=== PATIENT | male | born 1960 | race Caucasian/White ===

== ENCOUNTER 2020-05-09 14:03 | Emergency (ER) | payer OTHER ==
[~2020-05-09] VITALS: Ht 177.8 cm; Wt 155.0 kg
[~2020-05-09 14:03] MED LIST: AMLO10TA4 PO; ASPI-630 PO; ATOR20TA58 PO; OMEP40CA45 PO; TRIA1TAB5 PO
[2020-05-09] MEDS ORDERED: DEXAMETHASONE SOD PHOS 10 MG/ML VIAL. IV ONE (14:15)
[2020-05-09] MEDS ORDERED: cefTRIAXone SODIUM 1 GM VIAL ONE ×2 (14:36→14:40)
[2020-05-09] MEDS ORDERED: IV NORMAL SALINE 50ML 50 ML ONE ×2 (14:36→14:40)
[2020-05-09] MEDS ORDERED: MORPHINE SULFATE 4 MG/ML DISP.SYRIN. IV ONE ×2 (14:45→17:30)
[2020-05-09 14:47] LABS: BASO % 1 % (0-3); EOS % 0 % (0-3); HEMATOCRIT 52.1 % (39.0-53.0); HEMOGLOBIN 17.7 g/dL (13.0-17.5); LYMPH % 12 % (24-48); MEAN CORPUSCULAR HEMOGLOBIN 31 pg (25-35); MEAN CORPUSCULAR HGB CONC 34 g/dL (31-37); MEAN CORPUSCULAR VOLUME 91 fL (79-100); MONO # 0.8 x10^3/uL (0.0-1.1); MONO % 9 % (0-9); NEUT % 79 % (31-73); PLATELET COUNT 273 x10^3/uL (140-400); RED BLOOD COUNT 5.71 x10^6/uL (4.30-5.70); RED CELL DISTRIBUTION WIDTH 12.9 % (11.5-14.5); WHITE BLOOD COUNT 8.8 x10^3/uL (4.0-11.0)
[2020-05-09 14:50] LABS: CALCIUM 8.6 mg/dL (8.5-10.1); GFR 76.7; POTASSIUM 4.4 mmol/L (3.5-5.1)
--- NOTE | 2020-05-09 14:51 | RAD ---
Portable chest compared to similar exam dated May 042015 for shortness of breath. FINDINGS: Lung voids are reduced. There are patchy peripheral airspace opacities concerning for pneum onic infiltrates, though these are likely augmented some extent on the basis of habitus and incomplet e inspiration. No pleural effusions. No pneumothorax. Normal heart size. IMPRESSION: 1. Patchy airspace opacities which may reflect pneumonic infiltrates. Electronically signed by: Sukhdeep Brooks MD (05/09/2020 2:49 PM) [id number]
[2020-05-09 15:03] LABS: ALBUMIN/GLOBULIN RATIO 0.8 (1.0-1.7); C REACTIVE PROTEIN 145.5 mg/L (0-3.3); TOTAL BILIRUBIN 0.6 mg/dL (0.2-1.0); TOTAL PROTEIN 6.8 g/dL (6.4-8.2)
[2020-05-09] MEDS ORDERED: MORPHINE SULFATE 10 MG/ML SYRINGE. IV ONE (15:15)
[2020-05-09] MEDS ORDERED: IOHEXOL 350 MG/ML 100 ML VIAL. IV ONE (15:30)
[2020-05-09 15:53] LABS: INFLUENZA A PATIENT NEGATIVE (NEGATIVE); INFLUENZA B PATIENT NEGATIVE (NEGATIVE)
--- NOTE | 2020-05-09 16:15 | EKG ---
[address] [address] Test Date: 2020-05-09 Test Time: 14:22:16 Pat Name: ANNEL MORIN Department: Room: Gender: M [employer]ist[employer]: : [id number] Requested By: VANDANA HAM Order Number: [id number] Reading MD: Measurements Intervals [place] Rate: 97 P: MT: QRS: 0 QRSD: 96 T: 105 QT: 330 QTc: 423 Interpretive Statements SINUS RHYTHM LEFTWARD AXIS QRS(T) CONTOUR ABNORMALITY CONSIDER ANTEROSEPTAL MYOCARDIAL DAMAGE T ABNORMALITY IN HIGH LATERAL LEADS ABNORMAL ECG RI6.02 No previous ECG available for comparison
--- NOTE | 2020-05-09 16:52 | RAD ---
EXAMINATION: CTA CHEST CLINICAL HISTORY: Chest pain, shortness of breath, elevated d-dimer Technique: Spiral CT acquisition of the chest from the thoracic inlet to the upper abdomen following IV contrast with coronal and sagittal reformatted images also provided for review. CT Dose Reduction Employed: One or more of the following individualized dose reduction techniques wer e utilized for this examination: 1. Automated exposure control 2. Adjustment of the mA and/or kV ac cording to patient size 3. Use of iterative reconstruction technique. Comparison: Chest radiograph same day FINDINGS: Limitations: Suboptimal opacification of the pulmonary arterial system. Lines, Tubes, and Devices: None. Pulmonary Vasculature: No evidence of main, lobar, or proximal segmental pulmonary arterial thrombus. Mildly dilated main pulmonary artery measuring up to 3.3 cm in diameter, compatible with pulmonary a rterial hypertension. Lung Parenchyma, Pleura, and Airways: Moderate peripherally predominant patchy consolidation and grou ndglass opacities throughout the bilateral lungs. No pleural effusion. Central airways patent. Lower Neck, Lymph Nodes, and Mediastinum: Visualized thyroid gland within normal limits. Multiple pro minent borderline enlarged mediastinal lymph nodes, the largest which measures up to 10 mm in short a xis at station 6. Enlarged right greater than left hilar lymph nodes measuring up to 13 mm in short a xis. No axillary lymphadenopathy. Heart, Pericardium, and Thoracic Vessels: Mild cardiomegaly. No pericardial effusion. Aneurysmal dila tion of the ascending aorta measuring up to 4.6 x 4.4 cm. Normal variant common origin of the brachio cephalic and left common carotid arteries. No coronary artery atherosclerotic calcifications are note d, although the study is not optimized for coronary assessment. Bones and Soft Tissues: Degenerative changes of the thoracic spine. Upper Abdomen: Mildly dilated gallbladder measuring up to 5.1 cm in diameter, nonspecific with no sec ondary signs of acute cholecystitis on limited evaluation. Marked hepatic steatosis. IMPRESSION: No evidence of main, lobar, or proximal segmental pulmonary embolus on limited evaluation. Bilateral diffuse patchy consolidation and groundglass opacities, compatible with atypical or viral p neumonia. Mediastinal and hilar lymphadenopathy, likely reactive. Aneurysmal dilation of the ascending aorta measuring up to 4.6 cm. Additional nonacute findings as described. Electronically signed by: Tano Ward DO (05/09/2020 4:49 PM) [id number]
--- NOTE | 2020-05-09 16:58 | PHYS DOC ---
Past History Past Medical History: Hypertension Past Surgical History: Angioplasty, Appendectomy, Other Additional Past Surgical Histo: HERNIA Alcohol Use: None Adult General Chief Complaint Chief Complaint: SHORTNESS OF BREATH HPI HPI Patient is a 60-year-old male who presents to the emergency room with known novel coronavirus 19. He has been treating this at home and is saw his physician via telehealth today. They noticed that he was having a hard time breathing and recommended he come to the emergency room. Patient has been having shortness of breath for the last week. He states that his whole family has had Covid and his mother recently last week from novel coronavirus 19. He states that the shortness of breath has started over the last 2 to 3 days. He thought that he was starting to get better but this morning he started having severe shortness of breath. He was unable to walk to the bathroom on his own. He was then directed to come here. He states that his pulse ox's at home were in the 80s. He does not have other medical problems. He has been taking [id number] medications at home. He has not been on any steroids. Review of Systems Review of Systems Complete ROS is negative unless otherwise documented in HPI Current Medications Current Medications Current Medications Medications (Trade) Dose Ordered Sig/Niya Start Time Stop Time Status Last Admin Dose Admin Ceftriaxone Sodium 1 gm/ Sodium Chloride 50 ml @ 100 mls/hr 1X ONCE 05/09/20 14:15 05/09/20 14:44 DC 05/09/20 14:51 100 MLS/HR Ceftriaxone Sodium (Rocephin) 1 gm STK-MED ONCE 05/09/20 14:40 05/09/20 14:40 DC Dexamethasone Sodium Phosphate (Decadron) 10 mg 1X ONCE 05/09/20 14:15 05/09/20 14:24 DC 05/09/20 14:50 10 MG Iohexol (Omnipaque 350 Mg/ml) 100 ml 1X ONCE 05/09/20 15:30 05/09/20 15:31 DC 05/09/20 15:57 100 ML Morphine Sulfate (Morphine 10mg Syringe) 6 mg 1X ONCE 05/09/20 15:15 05/09/20 15:16 DC 05/09/20 15:16 6 MG Morphine Sulfate (Morphine 4mg Syringe) 4 mg 1X ONCE 05/09/20 14:45 05/09/20 14:46 DC 05/09/20 14:50 4 MG Sodium Chloride 50 ml @ As Directed STK-MED ONCE 05/09/20 14:40 05/09/20 14:40 DC Allergies Allergies Allergies Coded Allergies Type Severity Reaction Last Updated Verified Penicillins Allergy Intermediate 05/09/20 Yes Physical Exam Physical Exam General: Awake, alert, mild distress, ill appearing. Well Nourished, well hydrated. Cooperative HEENT: Atraumatic, EOMI, PERRL, airway patent, moist oral mucosa Neck: Supple, trachea midline Respiratory: Decreased breath sounds bilaterally, increased work of breathing, diffuse crackles CV: Tachycardia, no murmur, cap refill <2 GI: Soft, nondistended, nontender, no masses MSK: No obvious deformities Skin: Warm, dry, intact Neuro: A&O x3, speech NL, sensory and motor grossly intact, no focal deficits Psych: Normal affect, normal mood, not suicidal or homicidal Current Patient Data Vital Signs Vital Signs Date Time Temp Pulse Resp B/P (MAP) Pulse Ox O2 Delivery O2 Flow Rate FiO2 05/09/20 14:07 100.8 97 22 101/54 (70) 86 Room Air Lab Results Laboratory Tests Test 05/09/20 14:15 05/09/20 15:20 White Blood Count 8.8 x10^3/uL (4.0-11.0) Red Blood Count 5.71 x10^6/uL (4.30-5.70) H Hemoglobin 17.7 g/dL (13.0-17.5) H Hematocrit 52.1 % (39.0-53.0) Mean Corpuscular Volume 91 fL (79-100) Mean Corpuscular Hemoglobin 31 pg (25-35) Mean Corpuscular Hemoglobin Concent 34 g/dL (31-37) Red Cell Distribution Width 12.9 % (11.5-14.5) Platelet Count 273 x10^3/uL (140-400) Neutrophils (%) (Auto) 79 % (31-73) H Lymphocytes (%) (Auto) 12 % (24-48) L Monocytes (%) (Auto) 9 % (0-9) Eosinophils (%) (Auto) 0 % (0-3) Basophils (%) (Auto) 1 % (0-3) Neutrophils # (Auto) 7.0 x10^3uL (1.8-7.7) Lymphocytes # (Auto) 1.0 x10^3/uL (1.0-4.8) Monocytes # (Auto) 0.8 x10^3/uL (0.0-1.1) Eosinophils # (Auto) 0.0 x10^3/uL (0.0-0.7) Basophils # (Auto) 0.0 x10^3/uL (0.0-0.2) D-Dimer (Lamar) 1.41 mg/L (0.00-0.50) H Sodium Level 135 mmol/L (136-145) L Potassium Level 4.4 mmol/L (3.5-5.1) Chloride Level 96 mmol/L (98-107) L Carbon Dioxide Level 28 mmol/L (21-32) Anion Gap 11 (6-14) Blood Urea Nitrogen 22 mg/dL (8-26) Creatinine 1.0 mg/dL (0.7-1.3) Estimated GFR (Cockcroft-Gault) 76.7 BUN/Creatinine Ratio 22 (6-20) H Glucose Level 131 mg/dL (70-99) H Calcium Level 8.6 mg/dL (8.5-10.1) Total Bilirubin 0.6 mg/dL (0.2-1.0) Aspartate Amino Transferase (AST) 63 U/L (15-37) H Alanine Aminotransferase (ALT) 37 U/L (16-63) Alkaline Phosphatase 89 U/L (46-116) Creatine Kinase 939 U/L (39-308) H Troponin I Quantitative 0.537 ng/mL (0-0.055) H C-Reactive Protein 145.5 mg/L (0-3.3) H RB-Hrt-C-Type Natriuretic Peptide 133 pg/mL (0-124) H Total Protein 6.8 g/dL (6.4-8.2) Albumin 3.0 g/dL (3.4-5.0) L Albumin/Globulin Ratio 0.8 (1.0-1.7) L Ethyl Alcohol Level < 10 mg/dL (0-10) Influenza Type A (Rapid) Negative (NEGATIVE) Influenza Type B (Rapid) Negative (NEGATIVE) EKG EKG [] Radiology/Procedures Radiology/Procedures [] Heart Score Risk Factors: Risk Factors: DM, Current or recent (<one month) smoker, HTN, HLP, family history of CAD, obesity. Risk Scores: Risk Factors: DM, Current or recent (<one month) smoker, HTN, HLP, family history of CAD, obesity. Course & Med Decision Making Course & Med Decision Making Pertinent Labs and Imaging studies reviewed. (See chart for details) Patient is a 60-year-old male with known novel coronavirus 19 who presents to the emergency room in respiratory failure. Patient is ill-appearing on exam. He was placed on 4 L of oxygen with improvement in his pulse ox. Lab work was ordered to evaluate patient's endorgan damage. CBC, CMP, troponin, BNP, CRP, lactic, chest x-ray, EKG were all ordered. Patient was given Decadron and Rocephin. He was given morphine for pain. Patient was discussed with Dr. Eubanks who recommends the patient be admitted to [facility]. He will admit him at [place]. Patient will be transferred. Dragon Disclaimer Dragon Disclaimer This electronic medical record was generated, in whole or in part, using a voice recognition dictation system. Departure Departure: Impression: Primary Impression: COVID-19 Additional Impression: Respiratory failure with hypoxia Disposition: 02 DC/TRF OTHER SHORT TERM HOS Condition: IMPROVED Referrals: MARTHA MONTENEGRO MD (PCP) Problem Qualifiers VANDANA HAM MD May 09, 2020 16:58
[2020-05-09 18:39] VITALS: BP 116/75
== END 2020-05-09 20:25 | disposition short-term general hospital (02) ==
LOC: ER 14:03
DX: U07.1 COVID-19 (principal); J96.01 Acute respiratory failure with hypoxia; I10 Essential (primary) hypertension; Z98.61 Coronary angioplasty status; Z88.0 Allergy status to penicillin
CPT/HCPCS: 36415; 71045; 71275; 80053; 82550; 83880; 84484; 85025; 85379; 86140; 87804; 93005; 96365; 96375; 96376; 99285; G0480; J0696; J1100; J2270; Q9967

== ENCOUNTER → 2020-06-04 | Outpatient (CLI) | payer OTHER ==
[2020-05-09 18:39] VITALS: BP 116/75
--- NOTE | 2020-06-04 21:01 | RAD ---
INDICATION: Reason: CHEST PAIN / Spl. Instructions: / History: COMPARISON: May 09, 2020 FINDINGS: 2 view of chest obtained. Cardiomediastinal silhouette is similar to prior. Fullness of the bilateral pulmonary hilum. There is some mild interstitial and groundglass opacities bilaterally. Degenerative changes of the spine. IMPRESSION: * Mild interstitial and groundglass opacities. Given the appearance on previous CT this could be sec ondary to infectious etiology. Slightly improved aeration on the current exam compared to most recent prior. Electronically signed by: Jarret De Leon MD (06/04/2020 8:59 PM) [id number]
== END ==
LOC: RAD 17:07
PROVIDERS: ATTEND Specialist
DX: J12.82 Pneumonia due to coronavirus disease 2019 (principal); M47.814 Spondylosis without myelopathy or radiculopathy, thoracic region
CPT/HCPCS: 71046